=== PATIENT | female | born 1960 | race Caucasian/White ===

== ENCOUNTER 2016-11-17 05:34 | Day surgery (SDC) | payer OTHER ==
[2016-10-28 11:22] VITALS: BMI 44.0
[~2016-11-17] VITALS: Ht 162.6 cm; Wt 117.3 kg
[~2016-11-17 05:34] MED LIST: ACET1TAB84 PO; ATOR-22 PO; GLC/500 PO; LEVO50TA6 PO; LORA-741 PO; LOSA1TAB38 PO; METF-384 PO; METO25TA56 PO; OXYB10TA PO; PRLSR20 PO; ZOLP5TAB6 PO
[2016-11-17] MEDS ORDERED: CEFAZOLIN 2000 MG/60 ML D5W IV SCH (06:00)
[2016-11-17] MEDS ORDERED: LACTATED RINGER'S 1000ML 1,000 ML IV SCH (06:00)
[2016-11-17 06:04] VITALS: BP 180/98; PULSE 70; TEMP 36.5; O2SAT 94; Ht 162.6 cm; Wt 117.3 kg
[2016-11-17 06:10] LABS: HEMATOCRIT 37.6 % (37-47); MEAN CELL VOLUME 89.1 fL (80-100); MEAN CORPUSCULAR HEMOGLOBIN 29.1 pg (25-34); MEAN PLATELET VOLUME 9.2 fL (7.4-10.4); PLATELET COUNT 293 K/uL (130-400); RED BLOOD COUNT 4.22 M/uL (4.2-5.4); WHITE BLOOD COUNT 7.87 K/uL (4.8-10.8)
[2016-11-17 06:16] LABS: MEAN CORPUSCULAR HGB CONC 32.7 g/dl (32-36)
[2016-11-17] MEDS ORDERED: PROPOFOL IV EMULSION 10 MG/ML 20 ML VIAL IV ONE ×2 (06:26→07:41)
[2016-11-17] MEDS ORDERED: FENTANYL CITRATE INJ 50 MCG/1 ML 2 ML VIAL ONE (06:26)
[2016-11-17] MEDS ORDERED: MIDAZOLAM HCL 1 MG/ML 2ML VIAL ONE (06:26)
[2016-11-17] MEDS ORDERED: BUPIVACAINE 0.5 % 5 MG/1 ML MPF 30ML VIAL ONE (06:41)
[2016-11-17] MEDS ORDERED: LIDOCAINE HCL 1% 20 ML VIAL ONE (06:42)
--- NOTE | 2016-11-17 07:14 | History & Physical Bridge Note ---
H&P Re-Evaluation Bridge Note: I have examined the patient, reviewed the History & Physical and in the interval since the performance of the History & Physical I have noted the following changes of clinical significance: No changes noted
[2016-11-17] MEDS ORDERED: OXYC-57 PO (07:53)
--- NOTE | 2016-11-17 07:53 | [facility] Post Operative Brief Note ---
Immediate Operative Summary Operative Date Nov 17, 2016. Pre-Operative Diagnosis rectal bleeding Post-Operative Diagnosis hemorrhoid Procedure(s) Performed rectal exam under sedation, rubber band ligation of hemorrhoid Surgeon Jordin Soliz MD Conductor Pullman Surgeon(s) ARUNA Bustillos Estimated Blood Loss None Findings internal hemorrhoid Specimens none Drains none Anesthesia sedation + local Complication(s) None Disposition Recovery Room / PACU
--- NOTE | 2016-11-17 08:00 | Discharge Instructions ---
Discharge Instructions Date of Service Nov 17, 2016. Admission Reason for Admission: Internal Hemorrhoid Discharge Discharge Diagnosis / Problem: Internal Hemorrhoid Discharge Goals Goal(s): Decrease discomfort Activity Recommendations Activity Limitations: as noted below Avoid constipation, may take stool softener as needed. Narcotic pain medication can cause constipation. Plenty of fluids. . Instructions / Follow-Up Instructions / Follow-Up You have Gauze and mesh underwear , you may remove them when you get home. You may have some rectal bleeding for a few days following this procedure Follow-up with Dr. Soliz in 1 week Please call office at [phone] to make an appointment if you do not already have one. Current Hospital Diet Patient's current hospital diet: Discharge Diet Recommended Diet: Regular Diet Procedures Procedures Performed: rectal exam under sedation, rubber band ligation of hemorrhoid Pending Studies Studies pending at discharge: no Medical Emergencies . Who to Call and When: Medical Emergencies: If at any time you feel your situation is an emergency, please call 911 immediately. . Non-Emergent Contact Non-Emergency issues call your: Primary Care Provider, Surgeon Call Non-Emergent contact if: you have a fever, temperature is above 101.5, your pain is worsening . "Provider Documentation" section prepared by Lisa Ulrich. VTE Core Measure Inpt VTE Proph given/why not?: SCD's [place] Drug Monitoring Program Search Results: patient reviewed within database, no issues identified
--- NOTE | 2016-11-17 08:08 | Anesthesiology Progress Note ---
Anesthesia Post Op Note Date & Time Nov 17, 2016 at 08:08 Vital Signs Pain Intensity: 0 Vital Signs Past 12 Hours Date Time Temp Pulse Resp B/P Pulse Ox O2 Delivery O2 Flow Rate FiO2 11/17/16 08:00 67 18 165/101 95 Room Air 11/17/16 07:53 36.7 71 14 149/104 99 Mask 10 11/17/16 06:04 36.5 70 20 180/98 94 Room Air Notes Mental Status: alert / awake / arousable, participated in evaluation Pt Amnestic to Procedure: Yes Nausea / Vomiting: adequately controlled Pain: adequately controlled Airway Patency, RR, SpO2: stable & adequate BP & HR: stable & adequate Hydration State: stable & adequate Anesthetic Complications: no major complications apparent
[2016-11-17] MEDS ORDERED: EpHEDrine SULFATE INJ 50 MG/ML AMP IV PRN (08:15)
[2016-11-17] MEDS ORDERED: FENTANYL CITRATE INJ 50 MCG/1 ML 2 ML VIAL IV PRN (08:15)
[2016-11-17] MEDS ORDERED: ONDANSETRON INJ 2 MG/ML 2 ML VIAL IV PRN (08:15)
[2016-11-17] MEDS ORDERED: ATROPINE SULFATE 0.1 MG/ML 5ML SYR IV PRN (08:15)
[2016-11-17 08:20] VITALS: O2SAT 96
[2016-11-17 08:25] VITALS: BP 155/98; PULSE 59; TEMP 36.6
[2016-11-17 08:55] VITALS: BP 156/96; PULSE 61
[2016-11-17 09:10] VITALS: BP 162/92; PULSE 62; TEMP 36.3
--- NOTE | 2016-11-17 09:19 | OPERATIVE REPORT ---
DATE OF OPERATION: 11/17/2016 PREOPERATIVE DIAGNOSIS: Rectal bleeding. POSTOPERATIVE DIAGNOSIS: Internal hemorrhoids. OPERATION: Rectal exam and sedation, rubber band ligation of hemorrhoid. SURGEON: Dr. Jordin Soliz. INSTALLER: Lisa Ulrich PA-C. ANESTHESIA: Conscious sedation. ESTIMATED BLOOD LOSS: About 0. FINDINGS: Internal hemorrhoid. COMPLICATIONS: None. IV FLUIDS: 500 mL. INDICATIONS FOR THE PROCEDURE: This is a 56-year-old female who presented with rectal bleeding and the patient will be required to do rectal exam and sedation, possible rubber band ligation hemorrhoids. I did talk to the patient about the benefit and risk, alternate procedure. I indicated the risks may include but not limited such as bleeding, infection, recurrence, may need more procedure, the patient understands. She signed informed consent and I answered all questions. DETAILS OF PROCEDURE: We brought the patient to the OR, put the patient in the lithotomy position. The patient received SCD on bilateral legs to prevent DVT. Also, the patient received 2 grams Ancef IV for prophylactic antibiotic. The patient received conscious sedation by the anesthesiology. Then the patient had rectal area was prepped and draped in routine sterile fashion. After time out, I did a digital rectal exam first, normal rectal tone, no bladder stool, no mass. I put in the rectal retractor to do more detailed rectal exam and found the patient had internal hemorrhoid located 7 o'clock and then we decided to the rubber band ligation, we put a double rubble band ligation on the internal hemorrhoid at 7 o'clock, rechecked no active bleeding. Then I injected the local anesthesia by using 1% lidocaine mixed with 0.5% Marcaine around the rectal area. Then we put the dressing on. The patient tolerated the procedure well. After the procedure, I did talk to the patient, even before procedure I talked to the patient about the postop care. The patient understands and after the procedure, I did talk to the patient about the OR finding and procedure we did. She understands. I will follow up the patient in 1 week. I attest to the content of the Intraoperative Record and any orders documented therein. Any exceptio ns are noted below.
[2016-11-18] MEDS ORDERED: CEFAZOLIN IV 2,000 MG/60 ML D5W IV ONE (06:00)
== END 2016-11-17 09:10 | disposition home or self-care (01) ==
LOC: C.ACU 05:34
PROVIDERS: ATTEND Surgery
DX: K64.8 Other hemorrhoids (principal); K62.5 Hemorrhage of anus and rectum; E03.9 Hypothyroidism, unspecified; I10 Essential (primary) hypertension; E78.5 Hyperlipidemia, unspecified; E11.9 Type 2 diabetes mellitus without complications; F17.200 Nicotine dependence, unspecified, uncomplicated